=== PATIENT | female | born 1945 | race Two or more races ===

== ENCOUNTER → 2019-01-11 | Emergency (ER) | payer OTHER ==
[~2019-01-11] VITALS: Ht 160 cm; Wt 59.9 kg
[~2019-01-11] MED LIST: CLONAZEPAM0.5 MG; COUMADIN3 MG; ESCITALOPRAM OX20 MG; PRAVASTATIN SOD20 MG; ZANTAC300 MG
== END | disposition home or self-care (01) ==
LOC: ER 14:48
DX: R42 Dizziness and giddiness (principal)